=== PATIENT | female | born 1970 | race Caucasian/White ===

== ENCOUNTER 2025-02-26 09:56 | Outpatient (CLI) | payer BC | END 2025-02-26 09:57 | disposition home or self-care (01) | LOC: SCSRAD 09:56 | PROVIDERS: ATTEND Chiropractor | DX: M54.50 Low back pain, unspecified (principal); M47.816 Spondylosis without myelopathy or radiculopathy, lumbar region; M47.817 Spondylosis without myelopathy or radiculopathy, lumbosacral region | CPT/HCPCS: 72100 ==

== ENCOUNTER 2025-06-13 07:38 | Outpatient (CLI) | payer OTHER | END 2025-06-13 07:39 | disposition home or self-care (01) | LOC: BICCT 07:38 | PROVIDERS: ATTEND Internal Medicine Cardiovascular Disease | DX: Z13.6 Encounter for screening for cardiovascular disorders (principal); E78.5 Hyperlipidemia, unspecified | CPT/HCPCS: 75571 ==